=== PATIENT | male | born 1995 | race Caucasian/White ===

== ENCOUNTER 2018-09-19 06:41 | Emergency (ER) | payer OTHER ==
--- NOTE | 2018-09-19 07:33 | EDPHY ---
H & P Stated Complaint: fall standing height onto buttocks. ambulatory Time Seen by Provider: 09/19/18 06:46 HPI/ROS: CHIEF COMPLAINT: Right hip pain HISTORY OF PRESENT ILLNESS: 22-year-old male presents with right hip pain. He was up all night playing video games. He was sitting backwards on a chair when the chair tipped forward and he fell backwards onto the floor. Initially he had mild pain in the right hip. However the pain increased, so he called 911. On their arrival, he was able to ambulate without difficulty. No other injuries. REVIEW OF SYSTEMS: complete 10 point ROS reviewed and is negative except for the noted elements in the HPI - Personal History Current Tetanus/Diphtheria Vaccine: Unsure Current Tetanus Diphtheria and Acellular Pertussis (TDAP): Unsure - Medical/Surgical History Hx Asthma: No Hx Chronic Respiratory Disease: No Hx Diabetes: No Hx Cardiac Disease: No Hx Renal Disease: No Hx Cirrhosis: No Hx Alcoholism: No Hx HIV/AIDS: No Hx Splenectomy or Spleen Trauma: No Other PMH: pt reports poor appetite and sometimes vomits after eating. Pt reports he "may be depressed" pt denies SI/HI - Social History Smoking Status: Never smoked Additional Social History: Student at [employer] - Physical Exam Exam: General Appearance: Alert, pleasant Head: Atraumatic Eyes: No conjunctival erythema ENT, Mouth: no bony tenderness Neck: Nontender, range of motion without pain Respiratory: No chest wall tenderness, lungs clear bilaterally Cardiovascular: Regular rate and rhythm Abdomen: Abdomen is soft and nontender Skin: No lacerations, no abrasions Back: No midline T/L/S tenderness Extremities: Pelvis is stable and nontender; right hip-normal inspection, tender over the posterior aspect of the upper thigh, right hip passive range of motion without pain Neurological: Alert, nonfocal exam Psychiatric: Mood and affect normal Constitutional: Initial Vital Signs Temperature (C) 36.8 C 09/19/18 06:46 Heart Rate 116 H 09/19/18 06:46 Respiratory Rate 22 H 09/19/18 06:46 Blood Pressure 118/81 H 18 06:46 O2 Sat (%) 96 09/19/18 06:46 O2 Delivery Mode Room Air Allergies/Adverse Reactions: No Known Allergies Allergy (Unverified 09/19/18 06:46) Home Medications: Medication Instructions Recorded NK [No Known Home Meds] 09/19/18 Medical Decision Making - Diagnostics Imaging Results: XRay: no fx Imaging: I viewed and interpreted images myself ED Course/Re-evaluation: Xray results d/w pt. Able to walk with a steady gait. No evidence of fx/ dislocation. Ibuprofen instructions given. - Data Points Medications Given: Discontinued Medications Ketorolac Tromethamine (Toradol) 30 mg IVP EDNOW ONE Stop: 09/19/18 07:38 Last Admin: 09/19/18 07:43 Dose: 30 mg Departure - Departure Disposition: Home, Routine, Self-Care Clinical Impression: Contusion of right hip Qualifiers: Encounter type: initial encounter Qualified Code(s): S70.01XA - Contusion of right hip, initial encounter Condition: Good Instructions: Hip Contusion (ED) Additional Instructions: Ibuprofen 600 mg 3 times daily while the pain persists. Referrals: Vijay Stinson MD [[facility] [place] Primary Care Provider] - 2-3 days, call for appt.
[2018-09-19] MEDS ORDERED: KETOROLAC 15 MG/1 ML SDV IVP ONE (07:37)
[2018-09-19 07:45] VITALS: BP 107/88
== END 2018-09-19 07:50 | disposition home or self-care (01) ==
DX: S70.01XA Contusion of right hip, initial encounter (principal); W07.XXXA Fall from chair, initial encounter; Y93.C9 Activity, other involving computer technology and electronic devices; Y99.9 Unspecified external cause status
CPT/HCPCS: 96374; J1885